=== PATIENT | male | born 1970 | race Caucasian/White ===

== ENCOUNTER 2018-06-21 14:05 | Inpatient (IN) | payer OTHER ==
[~2018-06-21] VITALS: Ht 185.4 cm; Wt 136.8 kg
[~2018-06-21 14:05] MED LIST: GABA-827 PO; HYDR-3307 PO; TRAM50TA2 PO
[2018-06-21] MEDS ORDERED: ONDANSETRON 2MG/ML, 2ML IVPush ONE ×2 (14:30→17:00)
[2018-06-21] MEDS ORDERED: ACETAMINOPHEN 500 MG TABLET PO ONE (14:30)
[2018-06-21] MEDS ORDERED: ONDANSETRON 2MG/ML, 2ML ONE ×2 (14:40→14:43)
[2018-06-21] MEDS ORDERED: ACETAMINOPHEN 500 MG TABLET ONE ×2 (14:40→14:44)
[2018-06-21 15:03] LABS: BASOPHILS # (AUTO) 0.02 x10^3/uL (0-0.1); BASOPHILS % (AUTO) 0 % (0-1); EOSINOPHILS % (AUTO) 0 % (1-7); LYMPHOCYTES # (AUTO) 0.71 x10^3/uL (1-3.4); LYMPHOCYTES % (AUTO) 9 % (22-44); MD NO; MEAN CORPUSCULAR HEMOGLOBIN 29.1 pg (27.5-34.5); MEAN CORPUSCULAR HGB CONC 33.5 g/dL (33.2-36.2); MEAN CORPUSCULAR VOLUME 86.9 fL (81-97); MEAN PLATELET VOLUME 8.6 fL (7.4-10.4); MONOCYTES # (AUTO) 0.72 x10^3/uL (0.2-0.8); MONOCYTES % (AUTO) 9 % (2-9); NEUTROPHILS # (AUTO) 6.26 x10^3/uL (1.8-6.8); NEUTROPHILS % (AUTO) 81 % (42-75); PLATELET COUNT 186 x10^3/uL (130-400); RED BLOOD COUNT 4.96 x10^6/uL (4.38-5.82)
[2018-06-21 15:15] LABS: ALBUMIN 3.3 g/dL (3.4-5.0); ANION GAP 5 mmol/L (5-15); CALCIUM 8.7 mg/dL (8.5-10.1); CHLORIDE 104 mmol/L (98-107); CREATININE 0.95 mg/dL (0.7-1.3)
[2018-06-21 15:17] LABS: ALBUMIN 3.3 g/dL (3.4-5.0); ANION GAP 4 mmol/L (5-15); CALCIUM 8.9 mg/dL (8.5-10.1); CHLORIDE 105 mmol/L (98-107)
[2018-06-21 15:19] LABS: TROPONIN I 0.103 ng/mL (0.000-0.045)
[2018-06-21 15:20] LABS: ALANINE AMINOTRANSFERASE 40 U/L (12-78); ALKALINE PHOSPHATASE 73 U/L (45-117); BILIRUBIN,TOTAL 1.1 mg/dL (0.2-1.0); CREATININE 0.96 mg/dL (0.7-1.3); TOTAL PROTEIN 8.3 g/dL (6.4-8.2)
[2018-06-21 15:31] LABS: RAPID INFLUENZA A Negative (Negative); RAPID INFLUENZA B Negative (Negative)
[2018-06-21] MEDS ORDERED: INSU100C SQ-INSULIN (15:39)
[2018-06-21] MEDS ORDERED: INSU100V8 SQ (15:39)
[2018-06-21] MEDS ORDERED: OMNIPAQUE 350 MG/ML, 100ML BOTTLE ONE (16:18)
[2018-06-21 16:28] LABS: MICROSCOPIC INDICATED
[2018-06-21 16:36] LABS: CULTURE INDICATED? NO
[2018-06-21] MEDS ORDERED: MORPHINE SULFATE 4 MG/ML, 1ML ONE (16:42)
[2018-06-21] MEDS ORDERED: MORPHINE SULFATE 4 MG/ML, 1ML IVPush PRN (17:00)
[2018-06-21] MEDS ORDERED: NS + 20MEQ KCL 1,000 ML IV SCH (17:11)
[2018-06-21] MEDS ORDERED: ONDANSETRON 2MG/ML, 2ML IVPush PRN (17:30)
[2018-06-21] MEDS ORDERED: DOCUSATE 100 MG CAPSULE PO PRN (17:30)
[2018-06-21] MEDS ORDERED: ACETAMINOPHEN 325 MG TABLET PO PRN (17:30)
[2018-06-21] MEDS: ENOXAPARIN 40 MG/0.4 ML SQ SCH (17:30)
[2018-06-21] MEDS ORDERED: SODIUM CHLORIDE FLUSH 10ML SYR IVF PRN (17:30)
[2018-06-21] MEDS ORDERED: BISACODYL 10 MG SUPP PR PRN (17:30)
[2018-06-21] MEDS ORDERED: POLYETHYLENE GLYCOL 17 GM PACKET PO PRN (17:30)
[2018-06-21] MEDS ORDERED: KETOROLAC 30 MG/1 ML IV PRN (17:30)
[2018-06-21] MEDS ORDERED: ENALAPRILAT 1.25 MG/ML, 2ML IVPush PRN (17:30)
[2018-06-21 18:09] LABS: C-REACTIVE PROTEIN, QUANT 8.1 mg/dL (0.02-0.49); THYROID STIMULATING HORMONE 0.798 mIU/L (0.358-3.740)
[2018-06-21] MEDS ORDERED: NS + 20MEQ KCL 1,000 ML IV ONE (18:10)
--- NOTE | 2018-06-21 18:24 | NUR ---
REPORT TO SILVA CHERRY.
[2018-06-21 18:26] LABS: HCT (SEDRATE) 43.2 % (39.2-51.8)
--- NOTE | 2018-06-21 18:30 | NUR ---
PT STATES HE WOULD LIKE TO HOLD LOVENOX FOR NOW. EDUCATION PROVIDED.
[2018-06-21 18:47] VITALS: BP 106/76
[2018-06-21 18:50] VITALS: BP 106/76
[2018-06-21] MEDS: INSULIN LISPRO 100 UNITS/ML, PEN SQ-INSULIN SCH (20:13)
[2018-06-21] MEDS: INSULIN GLARGINE 100 UNITS/ML, PEN SQ-INSULIN SCH (20:16)
[2018-06-21 20:23] LABS: TROPONIN I 0.078 ng/mL (0.000-0.045)
[2018-06-21] MEDS: HYDROcodone/APAP 10/325 MG TABLET PO PRN (20:23)
[2018-06-22 02:06] VITALS: BP 99/65
[2018-06-22 02:20] LABS: BASOPHILS # (AUTO) 0.02 x10^3/uL (0-0.1); BASOPHILS % (AUTO) 0 % (0-1); EOSINOPHILS # (AUTO) 0.04 x10^3/uL (0-0.4); EOSINOPHILS % (AUTO) 1 % (1-7); LYMPHOCYTES # (AUTO) 0.84 x10^3/uL (1-3.4); LYMPHOCYTES % (AUTO) 14 % (22-44); MD NO; MEAN CORPUSCULAR HEMOGLOBIN 29.4 pg (27.5-34.5); MEAN CORPUSCULAR HGB CONC 33.9 g/dL (33.2-36.2); MEAN CORPUSCULAR VOLUME 86.9 fL (81-97); MEAN PLATELET VOLUME 8.2 fL (7.4-10.4); MONOCYTES # (AUTO) 0.82 x10^3/uL (0.2-0.8); MONOCYTES % (AUTO) 13 % (2-9); NEUTROPHILS # (AUTO) 4.42 x10^3/uL (1.8-6.8); NEUTROPHILS % (AUTO) 72 % (42-75); PLATELET COUNT 159 x10^3/uL (130-400); RED BLOOD COUNT 4.32 x10^6/uL (4.38-5.82); RED CELL DISTRIBUTION WIDTH 13.7 % (9.4-14.8)
[2018-06-22 02:28] LABS: TROPONIN I 0.082 ng/mL (0.000-0.045)
[2018-06-22 02:53] LABS: ALANINE AMINOTRANSFERASE 36 U/L (12-78); ALBUMIN 2.6 g/dL (3.4-5.0); ANION GAP 8 mmol/L (5-15); CALCIUM 8.2 mg/dL (8.5-10.1); CHLORIDE 105 mmol/L (98-107); CREATININE 0.88 mg/dL (0.7-1.3)
[2018-06-22 02:56] LABS: ALKALINE PHOSPHATASE 68 U/L (45-117); BILIRUBIN,TOTAL 0.6 mg/dL (0.2-1.0); TOTAL PROTEIN 6.9 g/dL (6.4-8.2)
[2018-06-22] MEDS ORDERED: VANCOMYCIN PER PHARMACY MC PRN (03:00)
[2018-06-22] MEDS ORDERED: PHARMACOKINETIC CONSULTATION MC ONE (03:30)
[2018-06-22] MEDS ORDERED: PHARMACOKINETIC MONITORING MC PRN (03:30)
[2018-06-22] MEDS: HYDROcodone/APAP 10/325 MG TABLET PO PRN ×3 (03:41→23:18)
[2018-06-22] MEDS: VANCOMYCIN 2,200 MG in SODIUM CHLORIDE 0.9% 500 ML IV SCH ×2 (03:41→20:30)
[2018-06-22] MEDS: morphine SULFATE 10 MG/ML, 1ML IVPush PRN ×2 (06:01→18:08)
[2018-06-22 06:38] VITALS: BP 96/58
[2018-06-22] MEDS: INSULIN LISPRO 100 UNITS/ML, PEN SQ-INSULIN SCH ×4 (07:00→20:37)
[2018-06-22] MEDS: SODIUM CHLORIDE 0.9% 1,000 ML IV SCH ×2 (08:56→16:30)
[2018-06-22 12:08] VITALS: BP 99/58
[2018-06-22] MEDS ORDERED: GLUCAGON 1 MG IM PRN (13:30)
[2018-06-22] MEDS ORDERED: DEXTROSE 50%, 50ML SYRINGE IVPush PRN (13:30)
[2018-06-22] MEDS ORDERED: DEXTROSE 4 GM TAB.CHEW PO PRN (13:30)
[2018-06-22] MEDS ORDERED: LIDOCAINE-MPF 1%, 5ML ONE (15:33)
[2018-06-22] MEDS ORDERED: FENTANYL PF 100 MCG/2ML ONE (15:37)
[2018-06-22] MEDS ORDERED: NALOXONE 1 MG/ML, 2ML ONE (15:37)
[2018-06-22] MEDS ORDERED: GENTAMICIN IV SCH (16:00)
[2018-06-22] MEDS ORDERED: SODIUM CHLORIDE 0.9% IV SCH (16:00)
[2018-06-22] MEDS: ENOXAPARIN 40 MG/0.4 ML SQ SCH (16:46)
[2018-06-22] MEDS: CEFAZOLIN PMX 2GM/50ML 50 ML IVPB SCH ×2 (17:27→23:18)
[2018-06-22 18:59] VITALS: BP 100/61
[2018-06-22] MEDS: SODIUM CHLORIDE FLUSH 10ML SYR IVF SCH (20:31)
[2018-06-22] MEDS: INSULIN GLARGINE 100 UNITS/ML, PEN SQ-INSULIN SCH (20:44)
[2018-06-23 01:32] VITALS: BP 102/67
[2018-06-23] MEDS: VANCOMYCIN 2,200 MG in SODIUM CHLORIDE 0.9% 500 ML IV SCH ×2 (03:21→17:17)
[2018-06-23 06:10] LABS: INTERNATIONAL NORMALIZED RATIO 1.11 (0.93-1.1); PROTHROMBIN TIME 11.7 Seconds (9.6-11.5)
[2018-06-23 06:13] LABS: CHLORIDE 109 mmol/L (98-107)
[2018-06-23 06:18] LABS: BASOPHILS # (AUTO) 0.01 x10^3/uL (0-0.1); BASOPHILS % (AUTO) 0 % (0-1); EOSINOPHILS # (AUTO) 0.08 x10^3/uL (0-0.4); EOSINOPHILS % (AUTO) 2 % (1-7); LYMPHOCYTES # (AUTO) 1.53 x10^3/uL (1-3.4); LYMPHOCYTES % (AUTO) 34 % (22-44); MD NO; MEAN CORPUSCULAR HEMOGLOBIN 29.1 pg (27.5-34.5); MEAN CORPUSCULAR HGB CONC 33.2 g/dL (33.2-36.2); MEAN CORPUSCULAR VOLUME 87.7 fL (81-97); MEAN PLATELET VOLUME 8.8 fL (7.4-10.4); MONOCYTES # (AUTO) 0.54 x10^3/uL (0.2-0.8); MONOCYTES % (AUTO) 12 % (2-9); NEUTROPHILS # (AUTO) 2.42 x10^3/uL (1.8-6.8); NEUTROPHILS % (AUTO) 53 % (42-75); PLATELET COUNT 169 x10^3/uL (130-400); RED BLOOD COUNT 4.16 x10^6/uL (4.38-5.82); RED CELL DISTRIBUTION WIDTH 13.6 % (9.4-14.8)
[2018-06-23 06:34] LABS: ALBUMIN 2.5 g/dL (3.4-5.0); ANION GAP 9 mmol/L (5-15); CALCIUM 7.9 mg/dL (8.5-10.1); CREATININE 0.64 mg/dL (0.7-1.3)
[2018-06-23 06:55] VITALS: BP 133/86
[2018-06-23] MEDS: INSULIN LISPRO 100 UNITS/ML, PEN SQ-INSULIN SCH ×4 (07:00→20:54)
[2018-06-23] MEDS: SODIUM CHLORIDE 0.9% 1,000 ML IV SCH ×2 (08:24→20:53)
[2018-06-23] MEDS: CEFAZOLIN PMX 2GM/50ML 50 ML IVPB SCH ×2 (08:24→15:30)
[2018-06-23] MEDS: SODIUM CHLORIDE FLUSH 10ML SYR IVF SCH ×2 (08:25→20:54)
[2018-06-23 11:20] VITALS: BP 124/82
[2018-06-23] MEDS ORDERED: PROPOFOL 10 MG/ML, 20ML ONE (14:53)
[2018-06-23 15:32] VITALS: BP 129/82
[2018-06-23] MEDS ORDERED: FENTANYL PF 100 MCG/2ML ONE (15:48)
[2018-06-23] MEDS ORDERED: MIDAZOLAM 1 MG/ML, 5ML ONE (15:48)
[2018-06-23] MEDS ORDERED: NALOXONE 1 MG/ML, 2ML ONE (15:49)
[2018-06-23] MEDS ORDERED: FLUMAZENIL 0.1 MG/1 ML, 5ML ONE (15:49)
[2018-06-23] MEDS ORDERED: OMNIPAQUE 350 MG/ML, 100ML BOTTLE ONE (16:09)
[2018-06-23] MEDS ORDERED: LIDOCAINE-MPF 1%, 5ML ONE (16:12)
[2018-06-23 17:16] VITALS: BP 117/79
[2018-06-23] MEDS: HYDROcodone/APAP 10/325 MG TABLET PO PRN (17:27)
[2018-06-23] MEDS: ENOXAPARIN 40 MG/0.4 ML SQ SCH (18:20)
[2018-06-23 18:55] VITALS: BP 115/73
[2018-06-23] MEDS: GENTAMICIN 400 MG in SODIUM CHLORIDE 0.9% 100 ML IV SCH (20:52)
[2018-06-23] MEDS: INSULIN GLARGINE 100 UNITS/ML, PEN SQ-INSULIN SCH (20:55)
[2018-06-23] MEDS: CEFTRIAXONE PMX 2GM/50ML 50 ML IV SCH (22:23)
[2018-06-23] MEDS: morphine SULFATE 10 MG/ML, 1ML IVPush PRN (23:25)
[2018-06-24 00:53] VITALS: BP 137/84
[2018-06-24 03:37] LABS: BASOPHILS # (AUTO) 0.02 x10^3/uL (0-0.1); BASOPHILS % (AUTO) 0 % (0-1); EOSINOPHILS # (AUTO) 0.14 x10^3/uL (0-0.4); EOSINOPHILS % (AUTO) 3 % (1-7); LYMPHOCYTES # (AUTO) 1.35 x10^3/uL (1-3.4); LYMPHOCYTES % (AUTO) 29 % (22-44); MD NO; MEAN CORPUSCULAR HEMOGLOBIN 29.1 pg (27.5-34.5); MEAN CORPUSCULAR HGB CONC 33.4 g/dL (33.2-36.2); MEAN CORPUSCULAR VOLUME 87.1 fL (81-97); MEAN PLATELET VOLUME 8.2 fL (7.4-10.4); MONOCYTES # (AUTO) 0.47 x10^3/uL (0.2-0.8); MONOCYTES % (AUTO) 10 % (2-9); NEUTROPHILS # (AUTO) 2.65 x10^3/uL (1.8-6.8); NEUTROPHILS % (AUTO) 57 % (42-75); PLATELET COUNT 192 x10^3/uL (130-400); RED BLOOD COUNT 4.05 x10^6/uL (4.38-5.82); RED CELL DISTRIBUTION WIDTH 13.4 % (9.4-14.8)
[2018-06-24 03:46] LABS: ALBUMIN 2.4 g/dL (3.4-5.0); ANION GAP 8 mmol/L (5-15); CALCIUM 7.9 mg/dL (8.5-10.1); CHLORIDE 109 mmol/L (98-107)
[2018-06-24 03:50] LABS: ALANINE AMINOTRANSFERASE 37 U/L (12-78); ALKALINE PHOSPHATASE 62 U/L (45-117); BILIRUBIN,TOTAL 0.8 mg/dL (0.2-1.0); CREATININE 0.61 mg/dL (0.7-1.3); TOTAL PROTEIN 6.6 g/dL (6.4-8.2); VANCOMYCIN,TROUGH 15.3 mcg/mL (5.0-10.0)
[2018-06-24 04:28] LABS: HEMOGLOBIN A1C 7.7 % (4.2-6.3)
[2018-06-24] MEDS: SODIUM CHLORIDE 0.9% 1,000 ML IV SCH ×3 (06:05→22:11)
[2018-06-24] MEDS: INSULIN LISPRO 100 UNITS/ML, PEN SQ-INSULIN SCH ×4 (07:00→21:00)
[2018-06-24 07:19] VITALS: BP 143/91
[2018-06-24] MEDS: SODIUM CHLORIDE FLUSH 10ML SYR IVF SCH ×2 (08:37→22:11)
[2018-06-24] MEDS: HYDROcodone/APAP 10/325 MG TABLET PO PRN ×2 (08:37→18:09)
[2018-06-24] MEDS: morphine SULFATE 10 MG/ML, 1ML IVPush PRN ×3 (13:22→23:37)
[2018-06-24 14:20] VITALS: BP 142/82
[2018-06-24] MEDS: ENOXAPARIN 40 MG/0.4 ML SQ SCH (18:09)
[2018-06-24 19:01] VITALS: BP 139/82
[2018-06-24] MEDS: GENTAMICIN 400 MG in SODIUM CHLORIDE 0.9% 100 ML IV SCH (22:10)
[2018-06-24] MEDS: INSULIN GLARGINE 100 UNITS/ML, PEN SQ-INSULIN SCH (22:10)
[2018-06-24] MEDS: CEFTRIAXONE PMX 2GM/50ML 50 ML IV SCH (23:37)
[2018-06-25 00:32] VITALS: BP 133/86
[2018-06-25] MEDS: HYDROcodone/APAP 10/325 MG TABLET PO PRN ×3 (03:04→19:42)
[2018-06-25 05:10] LABS: ALBUMIN 2.6 g/dL (3.4-5.0); ANION GAP 8 mmol/L (5-15); CALCIUM 8.2 mg/dL (8.5-10.1); CHLORIDE 109 mmol/L (98-107); CREATININE 0.66 mg/dL (0.7-1.3)
[2018-06-25 05:14] LABS: BASOPHILS # (AUTO) 0.03 x10^3/uL (0-0.1); BASOPHILS % (AUTO) 0 % (0-1); EOSINOPHILS # (AUTO) 0.15 x10^3/uL (0-0.4); EOSINOPHILS % (AUTO) 2 % (1-7); LYMPHOCYTES # (AUTO) 1.29 x10^3/uL (1-3.4); LYMPHOCYTES % (AUTO) 19 % (22-44); MD NO; MEAN CORPUSCULAR HEMOGLOBIN 29.3 pg (27.5-34.5); MEAN CORPUSCULAR HGB CONC 34.1 g/dL (33.2-36.2); MEAN PLATELET VOLUME 8.6 fL (7.4-10.4); MONOCYTES # (AUTO) 0.48 x10^3/uL (0.2-0.8); MONOCYTES % (AUTO) 7 % (2-9); NEUTROPHILS # (AUTO) 5.01 x10^3/uL (1.8-6.8); NEUTROPHILS % (AUTO) 72 % (42-75); PLATELET COUNT 197 x10^3/uL (130-400); RED BLOOD COUNT 4.11 x10^6/uL (4.38-5.82); RED CELL DISTRIBUTION WIDTH 13.4 % (9.4-14.8)
[2018-06-25] MEDS: morphine SULFATE 10 MG/ML, 1ML IVPush PRN ×2 (06:14→16:48)
[2018-06-25] MEDS: INSULIN LISPRO 100 UNITS/ML, PEN SQ-INSULIN SCH ×4 (07:24→19:45)
[2018-06-25 07:39] VITALS: BP 137/88
[2018-06-25] MEDS: SODIUM CHLORIDE 0.9% 1,000 ML IV SCH ×3 (08:05→23:05)
[2018-06-25] MEDS: SODIUM CHLORIDE FLUSH 10ML SYR IVF SCH ×2 (08:05→20:49)
[2018-06-25 13:29] VITALS: BP 134/85
[2018-06-25] MEDS: ENOXAPARIN 40 MG/0.4 ML SQ SCH (16:48)
[2018-06-25 18:23] VITALS: BP 148/95
[2018-06-25] MEDS: INSULIN GLARGINE 100 UNITS/ML, PEN SQ-INSULIN SCH (19:44)
[2018-06-25] MEDS: GENTAMICIN 400 MG in SODIUM CHLORIDE 0.9% 100 ML IV SCH (20:49)
[2018-06-25] MEDS: CEFTRIAXONE PMX 2GM/50ML 50 ML IV SCH (23:05)
[2018-06-26 00:07] VITALS: BP 121/79
[2018-06-26] MEDS: HYDROcodone/APAP 10/325 MG TABLET PO PRN ×3 (05:35→21:37)
[2018-06-26] MEDS: INSULIN LISPRO 100 UNITS/ML, PEN SQ-INSULIN SCH ×4 (07:31→20:45)
[2018-06-26] MEDS: SODIUM CHLORIDE 0.9% 1,000 ML IV SCH ×3 (07:37→23:44)
[2018-06-26] MEDS: SODIUM CHLORIDE FLUSH 10ML SYR IVF SCH ×2 (07:37→20:45)
[2018-06-26 08:20] VITALS: BP 151/100
[2018-06-26 16:28] VITALS: BP 150/94
[2018-06-26] MEDS: morphine SULFATE 10 MG/ML, 1ML IVPush PRN ×2 (16:55→23:11)
[2018-06-26] MEDS: ENOXAPARIN 40 MG/0.4 ML SQ SCH (16:55)
[2018-06-26 18:46] VITALS: BP 127/76
[2018-06-26 18:58] VITALS: BP 149/90
[2018-06-26] MEDS: GENTAMICIN 400 MG in SODIUM CHLORIDE 0.9% 100 ML IV SCH (20:44)
[2018-06-26] MEDS: INSULIN GLARGINE 100 UNITS/ML, PEN SQ-INSULIN SCH (20:45)
[2018-06-26] MEDS: CEFTRIAXONE PMX 2GM/50ML 50 ML IV SCH (23:02)
[2018-06-27 02:45] VITALS: BP 122/82
[2018-06-27 04:55] LABS: BASOPHILS # (AUTO) 0.02 x10^3/uL (0-0.1); BASOPHILS % (AUTO) 0 % (0-1); EOSINOPHILS # (AUTO) 0.14 x10^3/uL (0-0.4); EOSINOPHILS % (AUTO) 2 % (1-7); LYMPHOCYTES # (AUTO) 1.18 x10^3/uL (1-3.4); LYMPHOCYTES % (AUTO) 17 % (22-44); MD NO; MEAN CORPUSCULAR HEMOGLOBIN 28.9 pg (27.5-34.5); MEAN CORPUSCULAR HGB CONC 33.4 g/dL (33.2-36.2); MEAN CORPUSCULAR VOLUME 86.6 fL (81-97); MEAN PLATELET VOLUME 7.7 fL (7.4-10.4); MONOCYTES # (AUTO) 0.46 x10^3/uL (0.2-0.8); MONOCYTES % (AUTO) 7 % (2-9); NEUTROPHILS % (AUTO) 74 % (42-75); PLATELET COUNT 212 x10^3/uL (130-400); RED BLOOD COUNT 4.21 x10^6/uL (4.38-5.82); RED CELL DISTRIBUTION WIDTH 13.5 % (9.4-14.8)
[2018-06-27 04:56] LABS: HCT (SEDRATE) 36.5 % (39.2-51.8)
[2018-06-27 05:05] LABS: ALBUMIN 2.8 g/dL (3.4-5.0); ANION GAP 7 mmol/L (5-15); CALCIUM 8.8 mg/dL (8.5-10.1); CHLORIDE 106 mmol/L (98-107)
[2018-06-27 05:15] LABS: ALANINE AMINOTRANSFERASE 62 U/L (12-78); ALKALINE PHOSPHATASE 97 U/L (45-117); BILIRUBIN,TOTAL 0.3 mg/dL (0.2-1.0); CREATININE 0.67 mg/dL (0.7-1.3); TOTAL PROTEIN 7.1 g/dL (6.4-8.2)
[2018-06-27] MEDS: HYDROcodone/APAP 10/325 MG TABLET PO PRN ×3 (05:20→22:35)
[2018-06-27] MEDS: INSULIN LISPRO 100 UNITS/ML, PEN SQ-INSULIN SCH ×4 (06:54→21:11)
[2018-06-27 07:40] VITALS: BP 143/87
[2018-06-27] MEDS: SODIUM CHLORIDE FLUSH 10ML SYR IVF SCH ×2 (08:23→21:38)
[2018-06-27] MEDS: SODIUM CHLORIDE 0.9% 1,000 ML IV SCH ×3 (11:00→23:06)
[2018-06-27] MEDS: morphine SULFATE 10 MG/ML, 1ML IVPush PRN ×3 (11:12→19:35)
[2018-06-27] MEDS ORDERED: LIDOCAINE-MPF 1%, 5ML ONE (11:32)
[2018-06-27 14:29] VITALS: BP 129/82
[2018-06-27] MEDS: ENOXAPARIN 40 MG/0.4 ML SQ SCH (17:05)
[2018-06-27 19:50] VITALS: BP 130/89
[2018-06-27] MEDS: INSULIN GLARGINE 100 UNITS/ML, PEN SQ-INSULIN SCH (21:23)
[2018-06-27] MEDS: GENTAMICIN 400 MG in SODIUM CHLORIDE 0.9% 100 ML IV SCH (21:38)
[2018-06-27 22:33] VITALS: BP 137/89
[2018-06-27] MEDS: CEFTRIAXONE PMX 2GM/50ML 50 ML IV SCH (23:03)
[2018-06-28 02:15] VITALS: BP 126/83
[2018-06-28] MEDS: HYDROcodone/APAP 10/325 MG TABLET PO PRN ×2 (06:36→14:56)
[2018-06-28] MEDS: INSULIN LISPRO 100 UNITS/ML, PEN SQ-INSULIN SCH ×3 (07:00→16:00)
[2018-06-28 07:33] VITALS: BP 145/81
[2018-06-28] MEDS: SODIUM CHLORIDE FLUSH 10ML SYR IVF SCH (08:33)
[2018-06-28 12:31] VITALS: BP 130/85
[2018-06-28] MEDS ORDERED: CEFT1FRO2 IV (14:26)
[2018-06-28] MEDS: CEFTRIAXONE PMX 2GM/50ML 50 ML IV SCH (17:06)
== END 2018-06-28 18:02 | disposition home or self-care (01) | DRG 314 ==
LOC: ED 15:47 → EDIP 17:11 → 5SO 18:35
PROVIDERS: ADMIT Hospitalist; ATTEND Hospitalist
PROC: 0W9F30Z Drainage of Abdominal Wall with Drainage Device, Percutaneous Approach (ICD-10-PCS; 2018-06-22)
PROC: 0W9F30Z Drainage of Abdominal Wall with Drainage Device, Percutaneous Approach (ICD-10-PCS; 2018-06-22)
PROC: 02HV33Z Insertion of Infusion Device into Superior Vena Cava, Percutaneous Approach (ICD-10-PCS; principal; 2018-06-27)
PROC: B5181ZA Fluoroscopy of Superior Vena Cava using Low Osmolar Contrast, Guidance (ICD-10-PCS; 2018-06-27)
PROC: B548ZZA Ultrasonography of Superior Vena Cava, Guidance (ICD-10-PCS; 2018-06-27)
DX: T82.6XXA Infection and inflammatory reaction due to cardiac valve prosthesis, initial encounter (principal); I33.0 Acute and subacute infective endocarditis; A40.8 Other streptococcal sepsis; E87.1 Hypo-osmolality and hyponatremia; L02.211 Cutaneous abscess of abdominal wall; E11.65 Type 2 diabetes mellitus with hyperglycemia; E66.01 Morbid (severe) obesity due to excess calories; F12.90 Cannabis use, unspecified, uncomplicated; G47.33 Obstructive sleep apnea (adult) (pediatric); G89.29 Other chronic pain; I10 Essential (primary) hypertension; I48.91 Unspecified atrial fibrillation; K21.9 Gastro-esophageal reflux disease without esophagitis; Y83.1 Surgical operation with implant of artificial internal device as the cause of abnormal reaction of the patient, or of later complication, without mention of misadventure at the time of the procedure; Y92.89 Other specified places as the place of occurrence of the external cause; Z68.39 Body mass index [BMI] 39.0-39.9, adult; Z79.4 Long term (current) use of insulin; Z82.3 Family history of stroke; Z82.49 Family history of ischemic heart disease and other diseases of the circulatory system; Z83.3 Family history of diabetes mellitus; Z87.891 Personal history of nicotine dependence; Z88.0 Allergy status to penicillin; Z88.2 Allergy status to sulfonamides; M54.9 Dorsalgia, unspecified
CPT/HCPCS: 0399T; 10030; 10160; 36415; 36569; 36573; 71045; 71260; 71275; 74177; 75989; 76937; 77001; 77012; 80048; 80053; 80170; 80202; 81001; 82040; 82962; 83036; 83605; 84145; 84443; 84484; 85025; 85379; 85610; 85651; 85730; 86140; 87040; 87070; 87075; 87077; 87102; 87181; 87205; 87400; 93005; 93306; 93312; 93325; 96361; 96374; 96375; 99156; 99157; G0378; J0690; J0696; J1650; J1885; J2250; J2405; J2704; J3010; J3370; J3480; Q9967; C1729; C1751; C1769; J1580; J1815; J2270; J2310; J7030; J7040

== ENCOUNTER 2018-08-27 11:49 | Emergency (ER) | payer OTHER ==
[~2018-08-27] VITALS: Ht 185.4 cm; Wt 130.0 kg
[~2018-08-27 11:49] MED LIST changes: +CEFT1FRO2 IV; +INSU100C SQ-INSULIN; +INSU100V8 SQ
[2018-08-27 11:51] VITALS: BP 121/83
--- NOTE | 2018-08-27 12:03 | NUR ---
Pt to room from [facility], ambulatory with steady gait.
--- NOTE | 2018-08-27 12:17 | NUR ---
Dr. Franco at bedside to evaluate pt. Pt c/o drainage from seroma in LLQ abd starting yesterday. Pt has seroma r/t abd surg in May. Pt also states LLQ pain and fever since yesterday too. Pt placed in gown, positioned for comfort in bed. Continuous oxygen and BP monitors applied, all safety measures observed.
[2018-08-27] MEDS ORDERED: CEPH-376 PO (12:22)
[2018-08-27] MEDS ORDERED: ONDANSETRON 2MG/ML, 2ML IVPush ONE (12:30)
[2018-08-27] MEDS ORDERED: MORPHINE SULFATE 4 MG/ML, 1ML IVPush PRN (12:30)
[2018-08-27 12:56] LABS: BASOPHILS # (AUTO) 0.02 x10^3/uL (0-0.1); BASOPHILS % (AUTO) 0 % (0-1); EOSINOPHILS # (AUTO) 0.09 x10^3/uL (0-0.4); EOSINOPHILS % (AUTO) 1 % (1-7); LYMPHOCYTES # (AUTO) 1.28 x10^3/uL (1-3.4); LYMPHOCYTES % (AUTO) 15 % (22-44); MD NO; MEAN CORPUSCULAR HEMOGLOBIN 26.3 pg (27.5-34.5); MEAN CORPUSCULAR HGB CONC 32.4 g/dL (33.2-36.2); MEAN CORPUSCULAR VOLUME 81.2 fL (81-97); MEAN PLATELET VOLUME 8.4 fL (7.4-10.4); MONOCYTES # (AUTO) 0.66 x10^3/uL (0.2-0.8); MONOCYTES % (AUTO) 8 % (2-9); NEUTROPHILS # (AUTO) 6.72 x10^3/uL (1.8-6.8); NEUTROPHILS % (AUTO) 77 % (42-75); PLATELET COUNT 222 x10^3/uL (130-400)
[2018-08-27 13:00] LABS: ALBUMIN 3.5 g/dL (3.4-5.0); ANION GAP 5 mmol/L (5-15); CALCIUM 8.3 mg/dL (8.5-10.1); CHLORIDE 111 mmol/L (98-107); CREATININE 0.94 mg/dL (0.7-1.3)
[2018-08-27] MEDS ORDERED: ONDANSETRON 2MG/ML, 2ML ONE (13:09)
[2018-08-27] MEDS ORDERED: MORPHINE SULFATE 4 MG/ML, 1ML ONE (13:09)
[2018-08-27] MEDS ORDERED: OMNIPAQUE 350 MG/ML, 150 ML BOTTLE ONE (13:37)
--- NOTE | 2018-08-27 14:17 | NUR ---
dr. mejia at bedside. pt will go home.
--- NOTE | 2018-08-27 14:20 | NUR ---
dressing changed on abdomen. dry gauze with tegaderm applied.
--- NOTE | 2018-08-27 15:07 | NUR ---
PT GIVEN TEGADERM SUPPLIES FOR DRESSING CHANGES.
== END 2018-08-27 15:09 | disposition home or self-care (01) ==
LOC: ED 12:52
DX: L03.311 Cellulitis of abdominal wall (principal); F17.200 Nicotine dependence, unspecified, uncomplicated; E11.9 Type 2 diabetes mellitus without complications
CPT/HCPCS: 36415; 71045; 74177; 80048; 82040; 83605; 85025; 87040; 96374; 96375; 99284; J2405; Q9967

== ENCOUNTER 2019-10-24 12:10 | Emergency (ER) | payer OTHER ==
[~2019-10-24] VITALS: Ht 185.4 cm; Wt 130.0 kg
[~2019-10-24 12:10] MED LIST changes: +CEPH-376 PO; -HYDR-3307 PO; +HYDR-36 PO
--- NOTE | 2019-10-24 12:56 | NUR ---
THIS IS A 49 YO M W/ C/O SOB, COUGH, DIZZINESS AND FEVERS AT HOME X1 WEEK. PT CURRENTLY AFEBRILE, DENIES TAKING ANTIPYRETICS. CHRISTINE PEÑALOZA. PT RESTING ON GURNEY CONNECTED TO ALL MONITORING. AWAITING ED EVAL.
--- NOTE | 2019-10-24 13:23 | NUR ---
IN ROOM FOR ED EVAL.
[2019-10-24 14:00] LABS: BASOPHILS # (AUTO) 0.07 x10^3/uL (0-0.1); BASOPHILS % (AUTO) 1 % (0-1); EOSINOPHILS # (AUTO) 0.11 x10^3/uL (0-0.4); EOSINOPHILS % (AUTO) 2 % (1-7); LYMPHOCYTES # (AUTO) 1.33 x10^3/uL (1-3.4); LYMPHOCYTES % (AUTO) 23 % (22-44); MD NO; MEAN CORPUSCULAR HEMOGLOBIN 30.6 pg (27.5-34.5); MEAN CORPUSCULAR HGB CONC 34.3 g/dL (33.2-36.2); MEAN CORPUSCULAR VOLUME 89.3 fL (81-97); MEAN PLATELET VOLUME 8.7 fL (7.4-10.4); MONOCYTES # (AUTO) 0.58 x10^3/uL (0.2-0.8); MONOCYTES % (AUTO) 10 % (2-9); NEUTROPHILS # (AUTO) 3.75 x10^3/uL (1.8-6.8); NEUTROPHILS % (AUTO) 64 % (42-75); PLATELET COUNT 177 x10^3/uL (130-400); RED BLOOD COUNT 5.39 x10^6/uL (4.38-5.82); RED CELL DISTRIBUTION WIDTH 13.4 % (9.4-14.8)
[2019-10-24 14:09] LABS: ALBUMIN 3.7 g/dL (3.4-5.0); ANION GAP 6 mmol/L (5-15); CALCIUM 8.8 mg/dL (8.5-10.1); CHLORIDE 108 mmol/L (98-107)
[2019-10-24 14:12] LABS: ALANINE AMINOTRANSFERASE 55 U/L (12-78); ALKALINE PHOSPHATASE 61 U/L (45-117); BILIRUBIN,TOTAL 0.4 mg/dL (0.2-1.0); CREATININE 1.12 mg/dL (0.7-1.3); TOTAL PROTEIN 7.7 g/dL (6.4-8.2)
--- NOTE | 2019-10-24 14:52 | NUR ---
ALL TESTS RESULTED. PT IS UP FOR RECHECK AT THIS TIME.
[2019-10-24 15:45] VITALS: BP 121/78
--- NOTE | 2019-10-24 16:00 | NUR ---
BREAK RN. PT OK FOR D/C. HAS STEADY GAIT AND ALL OWN BELONGINGS UPON D/C. PT VERBALIZED UNDERSTANDING OF D/C PAPERWORK.
== END 2019-10-24 16:03 | disposition home or self-care (01) ==
LOC: ED 13:44
DX: B34.9 Viral infection, unspecified (principal); Z20.828 Contact with and (suspected) exposure to other viral communicable diseases; I51.7 Cardiomegaly; E11.9 Type 2 diabetes mellitus without complications; Z95.4 Presence of other heart-valve replacement
CPT/HCPCS: 36415; 71045; 80053; 85025; 93005; 99285; U0001

== ENCOUNTER 2019-12-20 13:57 | Observation (INO) | payer OTHER ==
[~2019-12-20] VITALS: Ht 185.4 cm; Wt 127.0 kg
[~2019-12-20 13:57] MED LIST changes: +HYDR-3246 PO; -HYDR-36 PO
[2019-12-20] MEDS ORDERED: ASPIRIN 81 MG TABLET CHEW PO ONE (15:00)
--- NOTE | 2019-12-20 15:10 | NUR ---
ASA ORDER IN CHART. PT RECEIVED ASA 324MG FROM EMS. WILL CONSULT ERP.
[2019-12-20] MEDS ORDERED: ONDANSETRON 2MG/ML, 2ML ONE (15:22)
[2019-12-20] MEDS ORDERED: KETOROLAC 30 MG/1 ML ONE (15:22)
--- NOTE | 2019-12-20 15:28 | NUR ---
ZOFRAN AND TORADOL GIVEN PER EMAR. AWAITING RESPONSE FROM ERP RE: ASA ORDER
[2019-12-20 15:30] LABS: BASOPHILS # (AUTO) 0.01 x10^3/uL (0-0.1); BASOPHILS % (AUTO) 0 % (0-1); EOSINOPHILS # (AUTO) 0.08 x10^3/uL (0-0.4); EOSINOPHILS % (AUTO) 1 % (1-7); LYMPHOCYTES # (AUTO) 1.28 x10^3/uL (1-3.4); LYMPHOCYTES % (AUTO) 22 % (22-44); MD NO; MEAN CORPUSCULAR HEMOGLOBIN 29.9 pg (27.5-34.5); MEAN CORPUSCULAR HGB CONC 33.2 g/dL (33.2-36.2); MEAN PLATELET VOLUME 8.3 fL (7.4-10.4); MONOCYTES # (AUTO) 0.49 x10^3/uL (0.2-0.8); MONOCYTES % (AUTO) 9 % (2-9); NEUTROPHILS # (AUTO) 3.89 x10^3/uL (1.8-6.8); NEUTROPHILS % (AUTO) 68 % (42-75); PLATELET COUNT 193 x10^3/uL (130-400); RED BLOOD COUNT 5.52 x10^6/uL (4.38-5.82); RED CELL DISTRIBUTION WIDTH 13.1 % (9.4-14.8)
[2019-12-20] MEDS ORDERED: ONDANSETRON 2MG/ML, 2ML IVPush ONE (15:30)
[2019-12-20] MEDS ORDERED: KETOROLAC 30 MG/1 ML IVPush ONE (15:30)
[2019-12-20 15:38] LABS: ALBUMIN 3.9 g/dL (3.4-5.0); ANION GAP 6 mmol/L (5-15); CALCIUM 8.9 mg/dL (8.5-10.1); CHLORIDE 110 mmol/L (98-107); CREATININE 0.93 mg/dL (0.7-1.3)
[2019-12-20 15:44] LABS: TROPONIN I 0.122 ng/mL (0.000-0.045)
--- NOTE | 2019-12-20 15:45 | NUR ---
VO FROM DR MORGAN: CANCEL ASA ORDER.
--- NOTE | 2019-12-20 16:43 | NUR ---
RESTING QUIETLY ON GURNEY. REPORTS DECREASE IN CP. CARDIAC MONITORING CONTINUING.
[2019-12-20] MEDS ORDERED: ONDANSETRON 2MG/ML, 2ML IVPush PRN (17:30)
[2019-12-20] MEDS ORDERED: ACETAMINOPHEN 325 MG TABLET PO PRN (17:30)
[2019-12-20] MEDS ORDERED: ONDANSETRON ODT 4 MG PO PRN (17:30)
[2019-12-20] MEDS ORDERED: NITROGLYCERIN 0.4 MG BOTTLE (25 TABS) SL PRN (17:30)
[2019-12-20] MEDS ORDERED: MORPHINE SULFATE 4 MG/ML, 1ML IVPush PRN (17:30)
[2019-12-20] MEDS: SODIUM CHLORIDE 0.9% 1,000 ML IV SCH (17:41)
--- NOTE | 2019-12-20 17:42 | NUR ---
RESTING QUIETLY ON GURNEY, WATCHING TV. NS HUNG; IV SITE PATENT. REPORTS MINIMAL PAIN (3/10) CURRENTLY. MONITORING CONTINUING: SINUS LARRY.
--- NOTE | 2019-12-20 17:44 | NUR ---
DINNER TRAY ORDERED.
[2019-12-20 17:52] LABS: TRIGLYCERIDES 108 mg/dL (50-200); VLDL CHOLESTEROL 22 mg/dL (0-25)
[2019-12-20 17:55] LABS: HDL CHOLESTEROL (DIRECT) 31 mg/dL (40-60)
[2019-12-20 17:56] LABS: CHOL/HDL RATIO 3.8; CHOLESTEROL, TOTAL 119 mg/dL (140-239); HDL CHOL % 26 % (26-37); LDL CHOLESTEROL,CALCULATED 66 mg/dL (54-169); LDL/HDL RATIO 2.1 (0.5-3.0)
--- NOTE | 2019-12-20 18:03 | NUR ---
PT REPORT TO JOSE J WATERS RN. PT CARE TRANSFERRED.
[2019-12-20 18:16] LABS: TROPONIN I 0.121 ng/mL (0.000-0.045)
--- NOTE | 2019-12-20 18:35 | NUR ---
BREAK RN-DINNER SERVED TO PATIENT. AWAITING PHARMACY APPROVAL AND DOSAGE OF HEPARIN DRIP. PT RESTING WITH NO COMPLAINTS. CALL BUTTON IN REACH.
--- NOTE | 2019-12-20 18:50 | NUR ---
PT EATING DINNER
--- NOTE | 2019-12-20 19:00 | NUR ---
PT REPORT FROM JOSE J WATERS RN. PT CARE TO BE RESUMED.
--- NOTE | 2019-12-20 19:20 | NUR ---
PT REPORT TO DILIP GREEN FOR ROOM 527
[2019-12-20 20:00] VITALS: BP 117/75
[2019-12-20] MEDS: INSULIN LISPRO 100 UNITS/ML, PEN SQ-INSULIN SCH (21:00)
[2019-12-20] MEDS ORDERED: ATORVASTATIN 40 MG TABLET PO SCH (21:00)
[2019-12-20] MEDS ORDERED: HEPARIN 25,000 UNITS/250ML PMX 250 ML IV PRN (21:30)
[2019-12-20] MEDS ORDERED: HEPARIN 5,000 UNITS/ML, 1ML IV PRN (21:30)
[2019-12-20] MEDS ORDERED: HEPARIN 5,000 UNITS/ML, 1ML IV ONE (21:30)
[2019-12-20 22:11] VITALS: BP 117/75
[2019-12-20] MEDS ORDERED: TEMAZEPAM 15 MG CAPSULE PO ONE (22:30)
[2019-12-21 00:34] LABS: TROPONIN I 0.128 ng/mL (0.000-0.045)
[2019-12-21 03:14] VITALS: BP 103/68
[2019-12-21 03:38] LABS: BASOPHILS # (AUTO) 0.02 x10^3/uL (0-0.1); BASOPHILS % (AUTO) 0 % (0-1); EOSINOPHILS # (AUTO) 0.14 x10^3/uL (0-0.4); EOSINOPHILS % (AUTO) 2 % (1-7); LYMPHOCYTES % (AUTO) 34 % (22-44); MD NO; MEAN CORPUSCULAR HEMOGLOBIN 29.8 pg (27.5-34.5); MEAN PLATELET VOLUME 8.2 fL (7.4-10.4); MONOCYTES # (AUTO) 0.44 x10^3/uL (0.2-0.8); MONOCYTES % (AUTO) 7 % (2-9); NEUTROPHILS # (AUTO) 3.66 x10^3/uL (1.8-6.8); NEUTROPHILS % (AUTO) 57 % (42-75); PLATELET COUNT 173 x10^3/uL (130-400); RED BLOOD COUNT 5.21 x10^6/uL (4.38-5.82); RED CELL DISTRIBUTION WIDTH 12.9 % (9.4-14.8)
[2019-12-21 03:51] LABS: ANION GAP 4 mmol/L (5-15); CALCIUM 8.3 mg/dL (8.5-10.1); CHLORIDE 112 mmol/L (98-107); CREATININE 0.96 mg/dL (0.7-1.3)
[2019-12-21] MEDS ORDERED: ASPIRIN 325 MG TABLET EC PO SCH (06:00)
[2019-12-21 07:11] VITALS: BP 115/73
[2019-12-21] MEDS: INSULIN LISPRO 100 UNITS/ML, PEN SQ-INSULIN SCH ×3 (07:11→17:05)
[2019-12-21] MEDS ORDERED: MAALOX/HYOSCYAMINE/LIDOCAINE 45 ML BTL PO ONE (09:00)
[2019-12-21] MEDS ORDERED: REGADENOSON 0.4 MG/5 ML SYRINGE ONE (09:21)
[2019-12-21] MEDS: SODIUM CHLORIDE 0.9% 1,000 ML IV SCH (09:50)
[2019-12-21] MEDS ORDERED: MAALOX/HYOSCYAMINE/LIDOCAINE 45 ML BTL PO PRN (10:30)
[2019-12-21] MEDS ORDERED: ACET325T26 PO (10:36)
[2019-12-21] MEDS ORDERED: METF850T PO (10:39)
[2019-12-21 13:31] VITALS: BP 131/84
[2019-12-21] MEDS ORDERED: metFORMIN 850 MG TABLET PO SCH (17:00)
== END 2019-12-21 18:06 | disposition home or self-care (01) ==
LOC: ED 14:01 → INTOOBSV 16:36 → EDIP 16:36 → 5SO 19:35
PROVIDERS: ADMIT Internal Medicine; ATTEND Internal Medicine
DX: I21.4 Non-ST elevation (NSTEMI) myocardial infarction (principal); R42 Dizziness and giddiness; I48.91 Unspecified atrial fibrillation; E11.9 Type 2 diabetes mellitus without complications; G47.30 Sleep apnea, unspecified; I38 Endocarditis, valve unspecified; E66.01 Morbid (severe) obesity due to excess calories; R79.89 Other specified abnormal findings of blood chemistry; Z95.3 Presence of xenogenic heart valve; Z98.1 Arthrodesis status; Z88.0 Allergy status to penicillin
CPT/HCPCS: 36415; 71045; 78452; 80048; 80061; 82040; 82962; 83036; 84484; 85025; 85520; 93005; 93017; 96361; 96374; 96375; 96376; 99285; A9502; C9898; G0378; J1644; J1815; J1885; J2405; J2785; J7030